=== PATIENT | male | born 1995 | race Caucasian/White ===

== ENCOUNTER → 2018-08-30 | Outpatient (CLI) | payer BC ==
--- NOTE | 2018-08-30 13:53 | 2DMMODE ---
[facility] [place] [address] 2 D/M-MODE ECHOCARDIOGRAM Name: KAREN ERICKSON Room #: REG [facility]#: [id number] ������������� Admission: 08/30/18 ������������� Attend Phys: Chato Dunaway Discharge: ��� ������������� ��� Date of : 89 Date of Service: 08/30/18 1353 �� Report #: [id number] �������� ��������������������������������������������[id number] THIS REPORT FOR: //name// APPROVED REPORT Study performed: 08/30/2018 13:19:56 EXAM: Comprehensive 2D, Doppler, and color-flow Echocardiogram Patient Location: Out-Patient Status: routine BSA: 1.99 HR: 70 bpm BP: 110/68 mmHg Rhythm: NSR Other Information Study Quality: Adequate/lung artifact Indications Palpitations 2D Dimensions RVDd: 39.34 mm IVSd: 9.26 (7-11mm) LVOT Diam: 21.93 (18-24mm) LVDd: 45.60 mm PWd: 9.89 (7-11mm) LVDs: 30.76 (25-40mm) Aortic Root: 30.99 mm Volumes Left Atrial Volume (Systole) Single Plane 4CH: 39.32 mL Single Plane 2CH: 43.42 mL LA ESV Index: 23.00 mL/m2 Aortic Valve AoV Peak Foster.: 1.35 m/s AO Peak Gr.: 7.32 mmHg LVOT Max P.69 mmHg LVOT Max V: 1.19 m/s FABIO Vmax: 3.33 cm2 Mitral Valve E/A Ratio: 2.4 MV Decel. Time: 249.41 ms MV E Max Foster.: 0.91 m/s [facility] [address] [place] [address] 2 D/M-MODE ECHOCARDIOGRAM Name: DREKAREN LAUREANO CHRISSY Room #: REG [facility]#: [id number] ������������� Admission: 08/30/18 ������������� Attend Phys: Chato Dunaway Discharge: ��� ������������� ��� Date of : [birth year] Date of Service: 08/30/18 1353 �� Report #: [id number] �������� ��������������������������������������������[id number] MV A Foster.: 0.38 m/s MV PHT: 72.33 ms IVRT: 59.98 ms Pulmonary Valve PV Peak Foster.: 1.12 m/s PV Peak Gr.: 5.02 mmHg Tricuspid Valve TR Peak Foster.: 1.95 m/s RAP Estimate: 5.00 mmHg TR Peak Gr.: 15.18 mmHg PA Pressure: 20.00 mmHg Left Ventricle The left ventricle is normal size. There is normal LV segmental wall motion. There is normal left ventricular wall thickness. Left ventricular systolic function is normal. LVEF is 55-60%. The left ventricular diastolic function is normal. Right Ventricle The right ventricle is normal size. The right ventricular systolic function is normal. Atria The left atrium size is normal. The right atrium size is normal. Aortic Valve The aortic valve is normal in structure. No aortic regurgitation is present. There is no aortic valvular stenosis. Mitral Valve The mitral valve is normal in structure. Trace mitral regurgitation. Tricuspid Valve The tricuspid valve is normal in structure. Trace tricuspid regurgitation. Estimated PAP is 20mmHg. Pulmonic Valve The pulmonary valve is normal in structure. There is no pulmonic valvular regurgitation. Great Vessels The aortic root is normal in size. Ascending aorta is not well visualized. IVC is normal in size and collapses >50% with inspiration. [facility] [place] [address] 2 D/M-MODE ECHOCARDIOGRAM Name: DREKARENRHODA LOWE Room #: REG [facility]#: [id number] ������������� Admission: 08/30/18 ������������� Attend Phys: Chato Dunaway Discharge: ��� ������������� ��� Date of : [birth year] Date of Service: 08/30/18 1353 �� Report #: [id number] �������� ��������������������������������������������[id number] Pericardium There is no pericardial effusion. <Conclusion> The left ventricle is normal size. LVEF is 55-60%. The left ventricular diastolic function is normal. The right ventricular systolic function is normal. The aortic valve is normal in structure. Trace mitral regurgitation. Trace tricuspid regurgitation. Estimated PAP is 20mmHg. The aortic root is normal in size. There is no pericardial effusion. ��������������������������������������������� <ELECTRONICALLY SIGNED> ���������������������������������������� By: Duc Cee MD, FACC ��������������������������������������������� 08/30/18 1353 1353 135 Duc Cee MD, [facility]
== END ==
LOC: CV 08:29
DX: R00.2 Palpitations (principal)